=== PATIENT | male | born 1975 | race Caucasian/White ===

== ENCOUNTER → 2016-06-27 | Outpatient (CLI) | payer BC ==
[~2016-06-27] MED LIST: ALLEGRA D 12 HO1 TER PO; AUGMENTIN 875 M1 TA1 PO; BACTRIM DS 8001 TA1 PO; BUPROPION HCL75 MG PO; DICLOFENAC POTA50 MG PO; FLOMAX0.4 MG PO; FLONASE 0.05% 121 EA NAS; IBU800 MG PO; LORAZEPAM1 MG PO; MOTRIN600 MG; MOTRIN800 MG PO; NASONEX0.05 MG/AC NS; NKHM; NORFLEX100 MG PO; PERCOCET 325 MG1 TA5 PO; PERCOCET 325 MG1 TA6 PO; ROBITUSSIN AC 110 ML PO; TAMIFLU 75MG CA75 MG PO; Zofran4 MG PO
[2016-06-27 09:23] LABS: BASO # 0.1 10*3/uL (0.0-0.1); BASO % 0.4 % (0.0-1.0); EOS # 0.3 10*3/uL (0.0-0.4); HEMATOCRIT 45.3 % (42.0-52.0); HEMOGLOBIN 15.5 g/dl (14.0-18.0); IG # 0.1 10*3/uL (0.0-0.1); LYMPH # 2.8 10*3/uL (1.3-4.4); LYMPH % 20.2 % (27.0-41.0); MEAN CELL VOLUME 94.6 fl (80.0-94.0); MEAN CORPUSCULAR HGB 32.4 pg (27.0-31.0); MEAN CORPUSCULAR HGB CONC 34.2 g/dl (33.0-37.0); MONO # 1.1 10*3/uL (0.1-1.0); MONO % 7.6 % (3.0-9.0); NEUT # 9.6 10*3/uL (2.3-7.9); NEUT % 69.3 % (47.0-73.0); PLATELET COUNT AUTOMATED 201 10*3/uL (130-400); RED BLOOD COUNT 4.79 10*6/uL (4.50-5.90); RED CELL DISTRI WIDTH 13.4 % (0-14.5); WHITE BLOOD COUNT 13.8 10*3/uL (4.8-10.8)
[2016-06-27 09:45] LABS: ALBUMIN 3.7 gm/dl (3.1-4.5); ALKALINE PHOSPHATASE 101 U/L (45-117); BILIRUBIN, TOTAL 0.4 mg/dl (0.2-1.0); BUN 9 mg/dl (7-24); CARBON DIOXIDE 24 mmol/L (21-32); CHLORIDE 108 mmol/L (98-107); CHOLESTEROL 171 mg/dL (<200); EST GLOM FILT AFRICAN AMERICAN > 60 ml/min; GLUCOSE 94 mg/dL (65-99); HDL CHOLESTEROL 38 mg/dl (40-60); LDL CHOLESTEROL 100 mg/dL (9-159); POTASSIUM 4.1 mmol/L (3.5-5.1); SGOT/AST 27 IU/L (3-35); SGPT/ALT 43 U/L (12-78); SODIUM 139 mmol/L (136-145); TOTAL PROTEIN 7.1 gm/dL (6.4-8.2); TRIGLYCERIDES 164 mg/dl (<150); VLDL CHOLESTEROL 33 mg/dL (6-40)
== END | disposition home or self-care (01) ==
LOC: LAB 08:43
PROVIDERS: Family Medicine
DX: E66.9 Obesity, unspecified (principal); R06.02 Shortness of breath

== ENCOUNTER 2017-01-31 11:17 | Emergency (ER) | payer BC ==
[~2017-01-31] VITALS: Ht 160 cm; Wt 83.9 kg
[2017-01-31 11:34] VITALS: BP 135/74
[2017-01-31] MEDS ORDERED: CYCLOBENZAPRINE10 MG PO (11:42)
[2017-01-31] MEDS ORDERED: PREDNISONE50 MG PO (11:42)
== END 2017-01-31 13:45 | disposition home or self-care (01) ==
LOC: ED 11:17
DX: S39.012A Strain of muscle, fascia and tendon of lower back, initial encounter (principal); F17.200 Nicotine dependence, unspecified, uncomplicated; Z79.899 Other long term (current) drug therapy; X50.1XXA Overexertion from prolonged static or awkward postures, initial encounter; Y93.89 Activity, other specified; Y92.89 Other specified places as the place of occurrence of the external cause; Y99.8 Other external cause status

== ENCOUNTER 2017-07-15 05:26 | Emergency (ER) | payer BC ==
[~2017-07-15] VITALS: Ht 160 cm; Wt 86.2 kg
--- NOTE | ~2017-07-15 | EKG ---
[place], [place] ELECTROCARDIOGRAM REPORT NAME: SRIKANTH BRICEÑO UNIT #: [id number] ROOM: DOCTOR: AGNIESZKA CREWS MD BIRTHDATE: [birth year] DOS: 07/15/2017 TIME: 0530 hours IMPRESSION: 1. Normal sinus rhythm at 93 beats per minute. 2. The tracing is within normal limits. 3. No previous tracing is available for comparison. AGNIESZKA CREWS MD CM:EKGRPT:ELECTROCARDIOGRAM REPORT [id number] AGNIESZKA CREWS MD
[~2017-07-15 05:26] MED LIST changes: +CYCLOBENZAPRINE10 MG PO; +PREDNISONE50 MG PO
[2017-07-15 06:12] LABS: BASO # 0.1 10*3/uL (0.0-0.1); BASO % 0.5 % (0.0-1.0); EOS # 0.4 10*3/uL (0.0-0.4); EOS % 3.4 % (1.0-4.0); HEMATOCRIT 44.3 % (42.0-52.0); HEMOGLOBIN 14.9 g/dl (14.0-18.0); LYMPH # 3.5 10*3/uL (1.3-4.4); LYMPH % 31.1 % (27.0-41.0); MEAN CELL VOLUME 95.7 fl (80.0-94.0); MEAN CORPUSCULAR HGB 32.2 pg (27.0-31.0); MEAN CORPUSCULAR HGB CONC 33.6 g/dl (33.0-37.0); MEAN PLATELET VOLUME 11.3 fl (9.6-12.3); MONO # 0.8 10*3/uL (0.1-1.0); MONO % 7.4 % (3.0-9.0); NEUT # 6.5 10*3/uL (2.3-7.9); NEUT % 57.2 % (47.0-73.0); PLATELET COUNT AUTOMATED 180 10*3/uL (130-400); RED BLOOD COUNT 4.63 10*6/uL (4.50-5.90); RED CELL DISTRI WIDTH 13.6 % (0-14.5); WHITE BLOOD COUNT 11.3 10*3/uL (4.8-10.8)
[2017-07-15 06:21] LABS: ACT PARTIAL THROMBO TIME 25.9 SECONDS (20.8-31.5)
[2017-07-15 06:31] LABS: ALBUMIN 3.5 gm/dl (3.1-4.5); ALKALINE PHOSPHATASE 105 U/L (45-117); BUN 10 mg/dl (7-24); CHLORIDE 108 mmol/L (98-107); CREATININE 0.86 mg/dL (0.70-1.30); POTASSIUM 3.7 mmol/L (3.5-5.1); SGOT/AST 27 IU/L (3-35); SGPT/ALT 42 U/L (12-78); SODIUM 139 mmol/L (136-145); TOTAL PROTEIN 6.9 gm/dL (6.4-8.2)
[2017-07-15 06:32] VITALS: BP 101/65
[2017-07-15 06:53] LABS: TROPONIN I < 0.015 ng/ml (<0.045)
[2017-07-15] MEDS ORDERED: IBU800 MG PO (07:04)
== END 2017-07-15 07:15 | disposition home or self-care (01) ==
LOC: ED 05:26
PROVIDERS: Student in an Organized Health Care Education/Training Program
DX: R07.89 Other chest pain (principal); Z98.890 Other specified postprocedural states; Z79.899 Other long term (current) drug therapy

== ENCOUNTER 2020-04-02 13:50 | Emergency (ER) | payer BC ==
[~2020-04-02] VITALS: Ht 157.4 cm; Wt 86.2 kg
[2020-04-02 17:28] LABS: HEMATOCRIT 47.2 % (42.0-52.0); MEAN CELL VOLUME 94.4 fl (80.0-94.0); MEAN CORPUSCULAR HGB CONC 32.8 g/dl (33.0-37.0); MEAN PLATELET VOLUME 10.6 fl (9.6-12.3); PLATELET COUNT AUTOMATED 233 10*3/uL (130-400); WHITE BLOOD COUNT 23.4 10*3/uL (4.8-10.8)
[2020-04-02 17:43] LABS: ATYPICAL LYMPHS 4 % (0-0); TOTAL CELLS COUNTED 100 #CELLS
[2020-04-02 17:44] LABS: PLATELET SUFFICIENCY NORMAL (NORMAL)
[2020-04-02 17:45] LABS: ALKALINE PHOSPHATASE 117 U/L (45-117); BUN 12 mg/dl (7-24); CHLORIDE 105 mmol/L (98-107); CREATININE 0.86 mg/dL (0.70-1.30); POTASSIUM 3.8 mmol/L (3.5-5.1); SGOT/AST 17 IU/L (3-35); SGPT/ALT 45 U/L (12-78); SODIUM 137 mmol/L (136-145); TOTAL PROTEIN 7.7 gm/dL (6.4-8.2)
[2020-04-02 18:42] VITALS: BP 108/57
[2020-04-02] MEDS ORDERED: CLINDAMYCIN HC300 MG PO (19:51)
== END 2020-04-02 20:15 | disposition home or self-care (01) ==
LOC: ED 13:50
PROVIDERS: Nurse Practitioner
DX: L03.116 Cellulitis of left lower limb (principal)

== ENCOUNTER 2020-04-04 10:57 | Inpatient (IN) | payer BC ==
[~2020-04-04] VITALS: Ht 157 cm; Wt 86.0 kg
[~2020-04-04 10:57] MED LIST changes: +CLINDAMYCIN HC300 MG PO
[2020-04-04 11:06] VITALS: BP 116/88
[2020-04-04 12:47] LABS: BASO # 0.1 10*3/uL (0.0-0.1); BASO % 0.4 % (0.0-1.0); EOS # 0.4 10*3/uL (0.0-0.4); EOS % 2.3 % (1.0-4.0); HEMATOCRIT 43.3 % (42.0-52.0); LYMPH # 2.9 10*3/uL (1.3-4.4); LYMPH % 19.6 % (27.0-41.0); MEAN CELL VOLUME 96.7 fl (80.0-94.0); MEAN CORPUSCULAR HGB CONC 32.1 g/dl (33.0-37.0); MEAN PLATELET VOLUME 10.9 fl (9.6-12.3); MONO % 6.9 % (3.0-9.0); NEUT # 10.6 10*3/uL (2.3-7.9); NEUT % 70.5 % (47.0-73.0); PLATELET COUNT AUTOMATED 197 10*3/uL (130-400); RED BLOOD COUNT 4.48 10*6/uL (4.50-5.90); RED CELL DISTRI WIDTH 13.8 % (0-14.5)
[2020-04-04 13:03] LABS: ALBUMIN 3.2 gm/dl (3.1-4.5); ALKALINE PHOSPHATASE 90 U/L (45-117); BUN 9 mg/dl (7-24); CHLORIDE 112 mmol/L (98-107); CREATININE 0.63 mg/dL (0.70-1.30); LIPASE 80 U/L (73-393); POTASSIUM 3.7 mmol/L (3.5-5.1); SGOT/AST 14 IU/L (3-35); SGPT/ALT 36 U/L (12-78); SODIUM 140 mmol/L (136-145); TOTAL PROTEIN 6.9 gm/dL (6.4-8.2)
[2020-04-04 14:29] VITALS: BP 112/55
[2020-04-04 19:26] VITALS: BP 123/66
[2020-04-05 01:10] VITALS: BP 115/60
[2020-04-05 05:37] LABS: BUN 8 mg/dl (7-24); CHLORIDE 115 mmol/L (98-107); CHOLESTEROL 167 mg/dL (<200); CREATININE 0.66 mg/dL (0.70-1.30); HDL CHOLESTEROL 34 mg/dl (40-60); LDL CHOLESTEROL 111 mg/dL (9-159); POTASSIUM 4.1 mmol/L (3.5-5.1); SODIUM 140 mmol/L (136-145); TRIGLYCERIDES 110 mg/dl (<150); VLDL CHOLESTEROL 22 mg/dL (6-40)
[2020-04-05 05:57] VITALS: BP 120/64
[2020-04-05 05:57] LABS: BASO # 0.1 10*3/uL (0.0-0.1); BASO % 0.4 % (0.0-1.0); EOS # 0.5 10*3/uL (0.0-0.4); EOS % 4.2 % (1.0-4.0); LYMPH # 3.5 10*3/uL (1.3-4.4); LYMPH % 27.8 % (27.0-41.0); MEAN CELL VOLUME 97.9 fl (80.0-94.0); MEAN CORPUSCULAR HGB 31.3 pg (27.0-31.0); MEAN PLATELET VOLUME 11.1 fl (9.6-12.3); MONO # 0.9 10*3/uL (0.1-1.0); MONO % 6.7 % (3.0-9.0); NEUT # 7.7 10*3/uL (2.3-7.9); NEUT % 60.5 % (47.0-73.0); PLATELET COUNT AUTOMATED 201 10*3/uL (130-400); RED BLOOD COUNT 4.19 10*6/uL (4.50-5.90); RED CELL DISTRI WIDTH 13.8 % (0-14.5); WHITE BLOOD COUNT 12.7 10*3/uL (4.8-10.8)
[2020-04-05 10:06] VITALS: BP 115/63
[2020-04-05 17:01] VITALS: BP 115/63
[2020-04-05 19:59] VITALS: BP 107/53
[2020-04-05 20:00] VITALS: BP 134/80
[2020-04-06] VITALS: BP 117/63
[2020-04-06 07:48] LABS: BASO # 0.1 10*3/uL (0.0-0.1); BASO % 0.6 % (0.0-1.0); EOS # 0.5 10*3/uL (0.0-0.4); EOS % 4.6 % (1.0-4.0); HEMATOCRIT 43.2 % (42.0-52.0); LYMPH # 2.8 10*3/uL (1.3-4.4); LYMPH % 25.5 % (27.0-41.0); MEAN CORPUSCULAR HGB 31.1 pg (27.0-31.0); MEAN CORPUSCULAR HGB CONC 32.4 g/dl (33.0-37.0); MEAN PLATELET VOLUME 10.4 fl (9.6-12.3); MONO # 0.7 10*3/uL (0.1-1.0); MONO % 6.7 % (3.0-9.0); NEUT # 6.7 10*3/uL (2.3-7.9); NEUT % 62.2 % (47.0-73.0); PLATELET COUNT AUTOMATED 239 10*3/uL (130-400); RED CELL DISTRI WIDTH 13.5 % (0-14.5); WHITE BLOOD COUNT 10.8 10*3/uL (4.8-10.8)
[2020-04-06 08:00] VITALS: BP 105/68
[2020-04-06 08:20] LABS: BUN 9 mg/dl (7-24); CHLORIDE 111 mmol/L (98-107); CREATININE 0.63 mg/dL (0.70-1.30); POTASSIUM 3.8 mmol/L (3.5-5.1); SODIUM 139 mmol/L (136-145)
[2020-04-06 12:00] VITALS: BP 117/71
[2020-04-06 16:00] VITALS: BP 114/56
[2020-04-07] VITALS: BP 112/57
[2020-04-07 08:00] VITALS: BP 112/59
[2020-04-07 12:00] VITALS: BP 116/67
[2020-04-07 16:00] VITALS: BP 120/69
[2020-04-07 20:00] VITALS: BP 127/70
[2020-04-08] VITALS: BP 104/65
[2020-04-08 06:31] LABS: BASO # 0.1 10*3/uL (0.0-0.1); BASO % 0.6 % (0.0-1.0); EOS # 0.6 10*3/uL (0.0-0.4); EOS % 6.2 % (1.0-4.0); HEMATOCRIT 42.3 % (42.0-52.0); LYMPH % 30.9 % (27.0-41.0); MEAN CELL VOLUME 94.4 fl (80.0-94.0); MEAN CORPUSCULAR HGB 31.3 pg (27.0-31.0); MEAN CORPUSCULAR HGB CONC 33.1 g/dl (33.0-37.0); MEAN PLATELET VOLUME 10.4 fl (9.6-12.3); MONO # 0.8 10*3/uL (0.1-1.0); MONO % 7.9 % (3.0-9.0); NEUT # 5.3 10*3/uL (2.3-7.9); NEUT % 53.9 % (47.0-73.0); PLATELET COUNT AUTOMATED 255 10*3/uL (130-400); RED BLOOD COUNT 4.48 10*6/uL (4.50-5.90); RED CELL DISTRI WIDTH 13.2 % (0-14.5); WHITE BLOOD COUNT 9.8 10*3/uL (4.8-10.8)
[2020-04-08 06:57] LABS: BUN 10 mg/dl (7-24); CREATININE 0.61 mg/dL (0.70-1.30)
[2020-04-08 08:00] VITALS: BP 129/70
[2020-04-08 12:00] VITALS: BP 121/76
[2020-04-08 16:00] VITALS: BP 127/71
[2020-04-08 20:00] VITALS: BP 109/64
[2020-04-09] VITALS: BP 113/65
[2020-04-09 07:16] LABS: BASO # 0.1 10*3/uL (0.0-0.1); BASO % 0.7 % (0.0-1.0); EOS # 0.6 10*3/uL (0.0-0.4); HEMATOCRIT 43.8 % (42.0-52.0); LYMPH # 2.8 10*3/uL (1.3-4.4); LYMPH % 28.6 % (27.0-41.0); MEAN CELL VOLUME 94.8 fl (80.0-94.0); MEAN CORPUSCULAR HGB CONC 32.6 g/dl (33.0-37.0); MEAN PLATELET VOLUME 10.3 fl (9.6-12.3); MONO # 0.8 10*3/uL (0.1-1.0); MONO % 8.3 % (3.0-9.0); NEUT # 5.5 10*3/uL (2.3-7.9); NEUT % 55.9 % (47.0-73.0); PLATELET COUNT AUTOMATED 264 10*3/uL (130-400); RED BLOOD COUNT 4.62 10*6/uL (4.50-5.90); RED CELL DISTRI WIDTH 13.3 % (0-14.5); WHITE BLOOD COUNT 9.9 10*3/uL (4.8-10.8)
[2020-04-09 08:00] VITALS: BP 108/67
[2020-04-09 12:00] VITALS: BP 121/72
[2020-04-09 16:00] VITALS: BP 120/70
[2020-04-09 20:00] VITALS: BP 113/56
[2020-04-10] VITALS: BP 110/61
[2020-04-10 08:00] VITALS: BP 112/54
[2020-04-10 12:00] VITALS: BP 134/65
[2020-04-10 16:00] VITALS: BP 116/68
[2020-04-10] MEDS ORDERED: LEVOFLOXACIN750 M2 PO (16:02)
[2020-04-10] MEDS ORDERED: CEFUROXIME AXE500 MG PO (16:02)
[2020-04-10] MEDS ORDERED: LAC-HYDRIN FIV226 GM T (16:08)
== END 2020-04-10 16:46 | disposition home or self-care (01) | DRG 872 ==
LOC: ED 10:57 → EDHOLD 14:08 → 5E 04-05 18:29
PROVIDERS: Physician Assistant; Student in an Organized Health Care Education/Training Program; ADMIT Internal Medicine; ATTEND Internal Medicine
DX: A41.9 Sepsis, unspecified organism (principal); L03.116 Cellulitis of left lower limb; D53.9 Nutritional anemia, unspecified; F17.200 Nicotine dependence, unspecified, uncomplicated; Z71.6 Tobacco abuse counseling; E66.9 Obesity, unspecified; Z68.34 Body mass index [BMI] 34.0-34.9, adult; Z83.3 Family history of diabetes mellitus; Z82.49 Family history of ischemic heart disease and other diseases of the circulatory system; Z79.899 Other long term (current) drug therapy

== ENCOUNTER → 2021-10-07 | Outpatient (CLI) | payer BC ==
[~2021-10-07] MED LIST changes: +CEFUROXIME AXE500 MG PO; +LAC-HYDRIN FIV226 GM T; +LEVOFLOXACIN750 M2 PO; +METFORMIN HYDR500 MG PO
[2021-10-07 11:18] LABS: BUN 6 mg/dl (7-24); CHLORIDE 110 mmol/L (98-107); CREATININE 0.74 mg/dL (0.70-1.30); POTASSIUM 4.2 mmol/L (3.5-5.1); SODIUM 141 mmol/L (136-145)
== END | disposition home or self-care (01) ==
LOC: LAB 10:36
PROVIDERS: ATTEND Internal Medicine Nephrology
DX: U07.1 COVID-19 (principal)

== ENCOUNTER 2022-07-19 15:25 | Emergency (ER) | payer BC ==
[~2022-07-19] VITALS: Ht 160 cm; Wt 79.4 kg
[2022-07-19 15:50] VITALS: BP 122/80
[2022-07-19] MEDS ORDERED: CEPHALEXIN500 M1 PO (17:45)
== END 2022-07-19 17:45 | disposition home or self-care (01) ==
LOC: ED 15:25
DX: L03.011 Cellulitis of right finger (principal); Z87.442 Personal history of urinary calculi; Z98.890 Other specified postprocedural states; F17.200 Nicotine dependence, unspecified, uncomplicated

== ENCOUNTER → 2022-08-08 | Outpatient (CLI) | payer BC ==
[~2022-08-08] MED LIST changes: +CEPHALEXIN500 M1 PO
[2022-08-08 09:28] LABS: CHOLESTEROL 174 mg/dL (<200); LDL CHOLESTEROL 114 mg/dL (9-159); TRIGLYCERIDES 122 mg/dl (<150)
== END | disposition home or self-care (01) ==
LOC: LAB 07:27
PROVIDERS: ATTEND Internal Medicine Nephrology
DX: E78.00 Pure hypercholesterolemia, unspecified (principal)

== ENCOUNTER → 2024-03-31 | Outpatient (CLI) | payer BC ==
[~2024-03-31] MED LIST changes: +ASPIRIN ADULT L81 M2 PO; +IOHEXOL 300 MG/ML 100 ML VIAL IV ONE; +ZITHROMAX250 MG PO
== END | disposition home or self-care (01) ==
LOC: LAB 08:33 → CT 14:00
PROVIDERS: ATTEND Internal Medicine Nephrology
DX: K76.0 Fatty (change of) liver, not elsewhere classified (principal); R91.8 Other nonspecific abnormal finding of lung field; F17.200 Nicotine dependence, unspecified, uncomplicated

== ENCOUNTER → 2024-09-09 | Outpatient (CLI) | payer BC ==
[~2024-09-09] MED LIST changes: -IOHEXOL 300 MG/ML 100 ML VIAL IV ONE
== END | disposition home or self-care (01) ==
LOC: RAD 09:46
PROVIDERS: ATTEND Internal Medicine Nephrology
DX: M77.11 Lateral epicondylitis, right elbow (principal)